=== PATIENT | male | born 1970 | race African-American/Black ===

== ENCOUNTER 2017-09-03 20:47 | Emergency (ER) | payer SELFPAY ==
[2017-09-03] MEDS ORDERED: Acetaminophen/Codeine 30-300mg Tablet ONE (22:16)
[2017-09-03] MEDS ORDERED: cloNIDine 0.1 MG TAB ONE (22:16)
[2017-09-03] MEDS ORDERED: Dexamethasone 10 MG/ML VIAL ONE (22:16)
[2017-09-03 22:18] LABS: #Basophils 0.1 thou/uL (0.0-0.2); #Eosinphils 0.1 thou/uL (0.0-0.7); #Lymphocytes 1.1 thou/uL (1.20-3.40); #Monocytes 0.7 thou/uL (0.11-0.59); #Neutrophils 6.9 thou/uL (1.40-6.50); %Basophils 0.7 % (0.0-1.0); %Eosinophils 1.2 % (0.0-10.0); %Lymphocytes 12.8 % (21.0-51.0); %Monocytes 7.4 % (0.0-10.0); Mean Platelet Volume 7.9 fL (7.4-10.4); Red Blood Cell (RBC) Count 4.55 mill/uL (4.70-6.10); White Blood Cell (WBC) Count 8.8 thou/uL (4.8-10.8)
[2017-09-03 22:25] LABS: ALT (SGPT) 8 U/L (8-55); AST (SGOT) 25 U/L (5-34); Alkaline Phosphatase 100 U/L (40-150); Anion Gap 12 mmol/L (10-20); BUN (Urea Nitrogen) 12 mg/dL (8.9-20.6); Bilirubin, Total 1.1 mg/dL (0.2-1.2); CK (CPK) 170 U/L (30-200); Calc. Creatinine Clearance 0 mL/min (70-130); Calcium 8.8 mg/dL (7.8-10.44); Carbon Dioxide 28 mmol/L (22-29); Chloride 100 mmol/L (98-107); Estimated GFR-MDRD Greater than 90; Lipase 15 U/L (8-78); Protein, Total 6.3 g/dL (6.0-8.3)
[2017-09-03 22:33] LABS: Troponin I 0.037 ng/mL (< 0.028)
--- NOTE | 2017-09-03 23:16 | RAD ---
CHEST PA AND LATERAL TWO VIEWS: History: 47-year-old male with chills, cough, congestion and bilateral feet swelling. FINDINGS: Heart size is within normal limits. The lungs are clear. IMPRESSION: No acute intrathoracic disease. No evidence for pneumonia. POS: [facility]
[2017-09-04] MEDS ORDERED: Lisinopril 10 MG TAB ONE (00:51)
[2017-09-04 01:35] LABS: Troponin I 0.025 ng/mL (< 0.028)
[2017-09-04] MEDS ORDERED: hydrALAZINE 25 MG TAB ONE (01:47)
[2017-09-04] MEDS ORDERED: Potassium Chloride 20 MEQ TAB ONE (01:47)
== END 2017-09-04 02:47 | disposition home or self-care (01) ==
LOC: ERS 20:47
DX: J01.90 Acute sinusitis, unspecified (principal); I10 Essential (primary) hypertension; R60.0 Localized edema; E78.5 Hyperlipidemia, unspecified; F41.9 Anxiety disorder, unspecified; F32.9 Major depressive disorder, single episode, unspecified; F17.210 Nicotine dependence, cigarettes, uncomplicated
CPT/HCPCS: 36415; 71020; 80053; 82553; 83690; 83880; 84484; 85025; 93005; 94640; 96372; J1100; J7620